=== PATIENT | male | born 1975 | race Hispanic/Latino ===

== ENCOUNTER 2024-10-24 14:48 | Emergency (ER) | payer SELFPAY ==
[~2024-10-24] VITALS: Ht 177.8 cm; Wt 102.1 kg
[~2024-10-24 14:48] MED LIST: AMLO-257 PO; LOSA50TA64 PO; MULT-660 PO; VITA100059 PO
--- NOTE | 2024-10-24 16:11 | ERN ---
ED Note History of Present Illness Stated Complaint: FELL OF LADDER, BACK PAIN Time Seen by MD: 14:52 Dictation: 48-year-old male presents to the ED for evaluation post fall onset [employer]. Patient reports head injury, neck pain, chest pain, back pain, abdominal pain, but denies any LOC, lower extremity pain or any other associated symptoms at this time. Patient states he fell backwards off the roof. Allergies: Coded Allergies: No Known Drug Allergies (Unverified Allergy, Unknown, 01/16/15) Home Meds Active Scripts Naproxen (Naproxen) 250 Mg Tablet, 250 MG PO BID for 5 Days, #10 TAB Prov:ODALYS DOMINGUEZ MD 10/24/24 Reported Medications Amlodipine Besylate (Amlodipine Besylate) 5 Mg Tablet, 5 MG PO DAILY, TAB 01/16/15 Losartan Potassium (Losartan Potassium) 50 Mg Tablet, 50 MG PO HS, TAB 01/16/15 Multivitamin (Multivitamins) 1 Each Tablet, 1 EACH PO DAILY, TAB 01/16/15 Vitamin E Mixed (Vitamin E) 1,000 Unit Capsule, 1000 UNIT PO DAILY, CAP 01/16/15 Review of System Dictation Constitutional: Positive for fall, head injury Negative for fever,chills, and weight loss Eyes: Negative for injury, pain,redness, and discharge ENT: Negative for injury,pain or swelling Cardiovascular: Positive for chest pain,Negative for palpitations, and edema Respiratory: Negative for shortness of breath, cough, and wheezing, Abdomen/GI: Positive for abdominal pain Negative for nausea, vomiting, diarrhea, and constipation Back: Positive for back pain : Negative for injury, bleeding and discharge MS/Extremity: Positive for neck pain Negative for injury and deformity Skin: Negative for rash, and discoloration Neuro: Negative for headache, weakness, numbness, tingling, and seizure Psych: Negative for suicide ideation, homicidal ideation, and hallucinations Initial Vital Sign VS Vital Signs Date Time Temp Pulse Resp B/P (MAP) Pulse Ox O2 Delivery O2 Flow Rate FiO2 10/24/24 16:56 99.0 91 20 142/94 96 Room Air 0 Physical Exam Dictation General: awake, alert, NAD Head/Face: Normocephalic, atraumatic Eyes: PERRL, EOMI, vision at baseline ENT: oral cavity clear, TMs clear, no signs of infection Neck: Trachea midline, supple, no nuchal rigidity, C-collar in place Cardiovascular: RRR, normal S1/S2, No MRGs, no JVD Respiratory: CTAB, no respiratory distress, No rales or wheezes Abdomen: Soft, non-tender, non-distended, normal bowel sounds, no guarding or rebound. Skin: Warm, dry, normal turgor, no rash MS/Extremity: Pulses equal, no cyanosis, neurovascular intact, FROM Neuro: COAx4, GCS 15, strength 5/5, CN 2-12 intact, normal cerebellar exam, normal gait, Psych: Normal behavior, mood, and affect normal Results (Laboratory/Radiology) CT Scan Comment: REASON: fall ORDERING PHYSICIAN: ODALYS DOMINGUEZ MD PROCEDURE: C SPIN WO - CT CERVICAL SPINE W/O CONTRAST CT CERVICAL SPINE W/O CONTRAST REASON: fall COMPARISON: None TECHNIQUE: Images are obtained from skull base to the upper thoracic spine in the axial plane. Sagittal and coronal reconstruction images were then performed. FINDINGS: There are normal appearing vertebral bodies. Alignment is unremarkable and disc interspace heights are well preserved. There is no evidence of fracture or subluxation. Soft tissues appear normal as well. IMPRESSION: Normal noncontrast CT of the cervical spine. CT was performed with one or more following dose reduction techniques: automated exposure control, adjustment of the mA and kv according to patient's size, or use of a iterative reconstruction technique. DICTATED BY: ALBERTO BUSTILLOS MD DATE: 10/24/24 1653 REASON: fall ORDERING PHYSICIAN: ODALYS DOMINGUEZ MD PROCEDURE: CAP WO - CT CHEST/ABD/PELV W/O CONTRAST CT CHEST/ABD/PELV W/O CONTRAST REASON: fall COMPARISON: None TECHNIQUE: Axial images are obtained from thoracic inlet through the perineum. Sagittal and coronal reconstruction images were then performed. Exam was performed without IV contrast. FINDINGS: Lungs are clear. There is no evidence of contusion or laceration. There is no pleural effusion or pneumothorax. Hilar and mediastinal structures appear normal. Chest wall structures appear normal, there are no visible fractures. There are no focal liver lesions. Spleen, kidneys, pancreas and gallbladder appear normal. Bowel loops appear unremarkable with the exception of moderate sigmoid diverticulosis, there is no evidence of diverticulitis. There is no free air or fluid. There are no focal fluid collections. Aorta and retroperitoneum appear normal. Pelvic soft tissues are unremarkable. Anterior abdominal wall is intact. Lumbar spine, pelvis and proximal femurs appear normal. IMPRESSION: 1. Negative CT chest, abdomen and pelvis. DICTATED BY: ALBERTO BUSTILLOS MD DATE: 10/24/24 1650 REASON: fall ORDERING PHYSICIAN: ODALYS DOMINGUEZ MD PROCEDURE: HEAD WO - CT HEAD/BRAIN W/O CONTRAST Exam: NONCONTRAST CT BRAIN REASON: fall. Comparison: None. TECHNIQUE: Images are obtained from vertex to the skull base. The exam was performed without IV contrast. FINDINGS: There is normal appearing brain parenchyma. There are no focal mass lesions. There is is no evidence of intracranial hemorrhage or acute stroke. Ventricles and sulci appear normal. Posterior fossa and brainstem structures are unremarkable. Paranasal sinuses and remaining extracranial soft tissues appear normal as well. IMPRESSION: 1. Normal noncontrast CT brain. CT was performed with one or more following dose reduction techniques: automated exposure control, adjustment of the mA and kv according to patient's size, or use of a iterative reconstruction technique. DICTATED BY: ALBERTO BUSTILLOS MD DATE: 10/24/24 1649 ED Course ED Course Orders Procedure Category Date Status Time Ct Cervical Spine W/O CT 10/24/24 Resulted Contrast 15:50 Ct Head/Brain W/O CT 10/24/24 Resulted Contrast 15:50 Ct Chest/Abd/Pelv W/O CT 10/24/24 Resulted Contrast 15:50 Morphine 4mg Syg PHA 10/24/24 Complete (Morphine 4mg Syg) 16:00 Ondansetron 4mg Inj PHA 10/24/24 Complete (Zofran 4mg Inj) 16:00 Current Medications Medications (Trade) Dose Ordered Sig/Vera Route PRN Reason Start Time Stop Time Status Last Admin Dose Admin Morphine Sulfate (morPHINE 4MG SYG) 4 mg ONCE ONCE IVP 10/24/24 16:00 10/24/24 16:01 DC 10/24/24 17:46 Ondansetron HCl (zoFRAN 4MG INJ) 4 mg ONCE ONCE IVP 10/24/24 16:00 10/24/24 16:01 DC 10/24/24 17:45 Vital Signs Date Time Temp Pulse Resp B/P (MAP) Pulse Ox O2 Delivery O2 Flow Rate FiO2 10/24/24 16:56 99.0 91 20 142/94 96 Room Air 0 Medical Decision Making MDM MDM: Differential diagnosis: Fall, back strain, head injury Rationale: Tests considered and ordered secondary to shared decision making include: labs, ECG and radiology Risk of complication and/or morbidity or mortality of patient management: None Medications-Per medication reconciliation Need for hospitalization: Patient does meet criteria for hospitalization. Need for emergency major/minor surgery: No There are no social concerns with this patient. Prescription drug management Prescriptions will include symptomatic care I independently interpreted the test that were performed, results were reviewed by me and considered findings on radiology if ordered. Medical management and examination interpretation discussions were had by me with other qualified healthcare professionals as indicated for the patient's care. DX & DISP Disposition: Discharge Departure Impression: Primary Impression: Fall Additional Impression: Sprain of back Condition: Stable Scripts Naproxen (Naproxen) 250 Mg Tablet 250 MG PO BID for 5 Days, #10 TAB Prov: ODALYS DOMINGUEZ MD 10/24/24 Referrals: DEBBIE BRUNNER [facility] (PCP) ODALYS DOMINGUEZ MD Oct 24, 2024 16:11
--- NOTE | 2024-10-24 16:52 | HMCIMG ---
Exam: NONCONTRAST CT BRAIN REASON: fall. Comparison: None. TECHNIQUE: Images are obtained from vertex to the skull base. The exam was performed without IV contrast. FINDINGS: There is normal appearing brain parenchyma. There are no focal mass lesions. There is is no evidence of intracranial hemorrhage or acute stroke. Ventricles and sulci appear normal. Posterior fossa and brainstem structures are unremarkable. Paranasal sinuses and remaining extracranial soft tissues appear normal as well. IMPRESSION: 1. Normal noncontrast CT brain. CT was performed with one or more following dose reduction techniques: automated exposure control, adjustment of the mA and kv according to patient's size, or use of a iterative reconstruction technique.
--- NOTE | 2024-10-24 16:55 | HMCIMG ---
CT CHEST/ABD/PELV W/O CONTRAST REASON: fall COMPARISON: None TECHNIQUE: Axial images are obtained from thoracic inlet through the perineum. Sagittal and coronal reconstruction images were then performed. Exam was performed without IV contrast. FINDINGS: Lungs are clear. There is no evidence of contusion or laceration. There is no pleural effusion or pneumothorax. Hilar and mediastinal structures appear normal. Chest wall structures appear normal, there are no visible fractures. There are no focal liver lesions. Spleen, kidneys, pancreas and gallbladder appear normal. Bowel loops appear unremarkable with the exception of moderate sigmoid diverticulosis, there is no evidence of diverticulitis. There is no free air or fluid. There are no focal fluid collections. Aorta and retroperitoneum appear normal. Pelvic soft tissues are unremarkable. Anterior abdominal wall is intact. Lumbar spine, pelvis and proximal femurs appear normal. IMPRESSION: 1. Negative CT chest, abdomen and pelvis.
--- NOTE | 2024-10-24 16:55 | HMCIMG ---
CT CERVICAL SPINE W/O CONTRAST REASON: fall COMPARISON: None TECHNIQUE: Images are obtained from skull base to the upper thoracic spine in the axial plane. Sagittal and coronal reconstruction images were then performed. FINDINGS: There are normal appearing vertebral bodies. Alignment is unremarkable and disc interspace heights are well preserved. There is no evidence of fracture or subluxation. Soft tissues appear normal as well. IMPRESSION: Normal noncontrast CT of the cervical spine. CT was performed with one or more following dose reduction techniques: automated exposure control, adjustment of the mA and kv according to patient's size, or use of a iterative reconstruction technique.
[2024-10-24] MEDS ORDERED: NAPR-1196 PO (17:30)
[2024-10-24] MEDS: ondanSETRON 4MG INJ IVP ONE (17:45)
[2024-10-24] MEDS: morPHINE 4 MG SYG IVP ONE (17:46)
[2024-10-24 18:56] VITALS: BP 144/71; PULSE 77; RESP 18; TEMP 97.9; O2SAT 96
== END 2024-10-24 18:57 | disposition home or self-care (01) ==
LOC: EDH 14:48
DX: S39.012A Strain of muscle, fascia and tendon of lower back, initial encounter (principal); R51.9 Headache, unspecified; W11.XXXA Fall on and from ladder, initial encounter; Y93.89 Activity, other specified; Y92.89 Other specified places as the place of occurrence of the external cause; Y99.8 Other external cause status; Z79.899 Other long term (current) drug therapy
CPT/HCPCS: 99285; 70450; 96374; 96375; 72125; 71250; 74176; J2405; J2270